=== PATIENT | female | born 1990 | race Two or more races ===

== ENCOUNTER 2025-02-05 08:40 | Emergency (ER) | payer MEDICAID, OTHER ==
[~2025-02-05] VITALS: Ht 167.6 cm; Wt 90.3 kg
--- NOTE | 2025-02-05 08:57 | ECG ---
[facility] Test Date: 2025-02-05 Test Time: 08:52:44 Pat Name: DANTE YANEZ Department: ER Room: Gender: F Tile Layer: GIFTY : 1990 Requested By: ERICA PICKETT Order Number: [id number] Reading MD: Measurements Intervals [place] Rate: 77 P: 56 SC: 141 QRS: 10 QRSD: 88 T: 14 QT: 385 QTc: 436 Interpretive Statements Sinus rhythm RSR' in V1 or V2, right VCD or RVH Please click the below link to view image of tracing.
--- NOTE | 2025-02-05 09:53 | DVH ---
EXAM: CT HEAD WITHOUT CONTRAST HISTORY: HEADACHE COMPARISON: None TECHNIQUE: Axial images of the head were obtained and reformatted in coronal and sagittal planes. All CT scans at this medical facility are performed using dose modulation techniques as appropriate t o a performed exam including the following: Automated exposure control was utilized; adjustment of th e MA and/or KV according to patient size; and use of iterative reconstruction technique. CT Dose: CTDI volume is 52.74 mGy. Dose-length product is 740.04 mGy*cm FINDINGS: There is no evidence of acute intracranial hemorrhage, mass, mass effect midline shift. There is no h ydrocephalus or extra-axial fluid collection. Araujo-white matter differentiation is maintained. The visualized paranasal sinuses and mastoid air cells are clear. The calvarium is intact. IMPRESSION: 1. No acute intracranial process. HS:Y
[2025-02-05 09:55] VITALS: BP 106/75; RESP 17; TEMP 98.8; O2SAT 97
[2025-02-05 10:11] VITALS: PULSE 77
--- NOTE | 2025-02-05 10:11 | ED.PDOC ---
HPI (NEURO) HPI Comments A 34 YEAR OLD FEMALE PRESENTS TO THE ED WITH COMPLAINT OF HEADACHE. PATIENT STATES SHE HAS BEEN EXPERIENCING A HEADACHE WITH NAUSEA AND MILD LIGHT SENSITIVITY FOR THE PAST 4 DAYS. PATIENT NOTES THAT SHE WAS ALSO HAD LEFT EAR PAIN. PATIENT DENIES VISION CHANGES, SLURRED SPEECH, ONE-SIDED WEAKNESS, FACIAL DROOP, FEVER, CHILLS, SHORTNESS OF BREATH, CHEST PAIN, ABDOMINAL PAIN, VOMITING, OR OTHER COMPLAINTS. NO OTHER SYMPTOMS OR MODIFYING FACTORS AT THIS TIME. PATIENT IS ALERT, ORIENTED X 4, AND HAS STEADY GAIT. Chief Complaint: Headache Time Seen by MD: 09:01 Primary Care Provider: DREA Reviewed Notes: Nurses Notes, Medications, Allergies Information Source: Patient Mode of Arrival: Ambulatory Severity: Moderate Headache Severity: Moderate Timing: Days Duration: Since onset, Days Prehospital treatment: None Headache Quality: Aching Headache Location: Generalized Onset: At rest Circumstances: Spontaneous Symptoms: Other (HEADACHE, NAUSEA, LIGHT SENSITIVITY) History of: None Modifying factors: Nothing Associated Signs and Symptoms: Headache, Nausea, Other (RIGHT EAR DULL PAIN ) Past Medical History PAST MEDICAL HISTORY: Denies Surgical History: Denies all surgeries CONTROLS TECHNICIAN History: No Pertinent CONTROLS TECHNICIAN History Family History Family History: Reviewed,noncontributory to illness Social History Smoker: Non-Smoker Alcohol: Denies ETOH Use Drugs: Denies Drug Use Lives In: Home Constitutional: denies: chills, diaphoresis, fatigue, fever, malaise, sweats, weakness, others EENTM: reports: ear pain, photophobia; denies: blurred vision, double vision, ear bleeding, ear discharge, ear drainage, ear ringing, eye pain, eye redness, hearing loss, mouth pain, mouth swelling, nasal discharge, nose bleeding, nose congestion, nose pain, tearing, throat pain, throat swelling, voice changes, others Respiratory: denies: cough, hemoptysis, orthopnea, SOB at rest, shortness of breath, SOB with excertion, stridor, wheezing, others Cardiovascular: denies: chest pain, dizzy spells, diaphoresis, Dyspnea on exertion, edema, irregular heart beat, left arm pain, lightheadedness, palpitations, PND, syncope, others Gastrointestinal: reports: nausea; denies: abdomen distended, abdominal pain, blood streaked bowels, constipated, diarrhea, dysphagia, difficulty swallowing, hematemesis, melena, poor appetite, poor fluid intake, rectal bleeding, rectal pain, vomiting, others Genitourinary: denies: abnormal vagina bleeding, burning, dyspareunia, dysuria, flank pain, frequency, hematuria, incontinence, pain, , vagina discharge, urgency, others Neurological: reports: headache, left sided numbness, tingling; denies: dizziness, fainting, left sided weakness, numbness, paresthesia, pre-existing deficit, right sided numbness, right sided weakness, seizure, speech problems, tremors, weakness, others Musculoskeletal: denies: back pain, gout, joint pain, joint swelling, muscle pain, muscle stiffness, neck pain, others Integumetry: denies: bruises, change in color, change in hair/nails, dryness, laceration, lesions, lumps, rash, wounds, others Allergic/Immunocompromised: denies: Difficulty Healing, Frequent Infections, Hives, Itching, others Hematologic/Lymphatic: denies: anemia, blood clots, easy bleeding, easy bruising, swollen glands, others Endocrine: denies: excessive hunger, excessive sweating, excessive thirst, excessive urination, flushing, intolerance to cold, intolerance to heat, unexplained weight gain, unexplained weight loss, others Psychiatric: denies: anxiety, bipolar disorder, depression, hopeless, panic disorder, schizophrenia, sleepless, suicidal, others All Other Systems: Reviewed and Negative Physical Exam General Appearance: No Apparent Distress, Normal, Other (ANXIOUS ) HEENT: Normal ENT Inspection, PERRL/EOMI, Pharynx Normal, TMs Normal, Other (ERYTHEMA AND DULL OF RIGHT EAR CANAL, NO DRAINAGE AND BLOOD CLOTS. ) Neck: Full Range of Motion, Non-Tender, Normal, Normal Inspection Respiratory: Chest Non-Tender, Lungs Clear, No Accessory Muscle Use, No Respiratory Distress, Normal Breath Sounds Cardiovascular: No Edema, No JVD, No Murmur, No Gallop, Normal Peripheral Pulses, Regular Rate/Rhythm Breast Exam: Deferred Gastrointestinal: No Organomegaly, Non Tender, No Pulsatile Mass, Normal Bowel Sounds, Soft Genitalia: Deferred Pelvic: Deferred Rectal: Deferred Extremities: No calf tenderness, Normal capillary refill, Normal inspection, Normal range of motion, Non-tender, No pedal edema Musculoskeletal : Apperance: Normal Neurologic: Alert, supervisory cbp officer II-XII nml as Tested, Headache, No Motor Deficits, Normal Affect, Normal Mood, No Sensory Deficits Cerebellar Function: Normal Reflexes: Normal Skin: Dry, Normal Color, Warm Peripheral Pulses: 2+ carotid (R), 2+ carotid (L) Lymphatic: No Adenopathy EKG EKG : Pulse Rate (adult): 77 [place]: Normal Cardiac Rhythm: NSR Block: None Hypertrophy: None ST: Normal Was a procedure done? Was a procedure done?: No Differential Diagnosis (SZ) Seizure: N/A General Weakness: N/A Headache: Cluster, Migraine, Epidural Hemorrhage, Intracerebral Hemorrhage, Mass Lesion, Sinusitis, Other (EXTERNAL EAR INFECTION ) X-Ray, Labs, Meds, VS Vital Signs Date Time Temp Pulse Resp B/P (MAP) Pulse Ox O2 Delivery O2 Flow Rate FiO2 02/05/25 10:11 77 02/05/25 09:55 98.8 86 17 106/75 (85) 97 98.8 02/05/25 09:55 86 17 97 Room Air 02/05/25 08:56 98.8 86 16 106/75 (85) 97 98.8 02/05/25 08:52 77 Current Medications Medications (Trade) Dose Ordered Sig/Raulito Route Start Time Stop Time Status Last Admin Sumatriptan Succinate (Imitrex Inj) 6 mg ONCE ONCE SC 02/05/25 10:15 02/05/25 10:16 DC 02/05/25 10:15 EXAM: CT HEAD WITHOUT CONTRAST HISTORY: HEADACHE COMPARISON: None TECHNIQUE: Axial images of the head were obtained and reformatted in coronal and sagittal planes. All CT scans at this medical facility are performed using dose modulation techniques as appropriate to a performed exam including the following: Automated exposure control was utilized; adjustment of the MA and/or KV according to patient size; and use of iterative reconstruction technique. CT Dose: CTDI volume is 52.74 mGy. Dose-length product is 740.04 mGy*cm FINDINGS: There is no evidence of acute intracranial hemorrhage, mass, mass effect midline shift. There is no hydrocephalus or extra-axial fluid collection. Araujo-white matter differentiation is maintained. The visualized paranasal sinuses and mastoid air cells are clear. The calvarium is intact. IMPRESSION: 1. No acute intracranial process. HS:Y ATED BY: YAHIR RIZZO MD DICTATED DATE/TIME: 02/05/25950 SIGNED BY: YAHIR RIZZO MD SIGNED DATE/TIME: 02/05/25950 CC: X-Ray, Labs, Meds, VS Comment EXTERNAL MEDICAL RECORDS REVIEWED: [NONE] INDEPENDENT HISTORIANS: [NONE] SOCIAL DETERMINANTS OF HEALTH: [NONE] LABS ORDERED: NONE REVIEWED AND INTERPRETED RESULTS: NONE IMAGING ORDERED: CT BRAIN TREATMENTS ORDERED: IMITREX 6 MG IM PROCEDURES PERFORMED: NONE CRITICAL CARE TIME: NONE I HAVE DISCUSSED THE PATIENT WITH THE ATTENDING PHYSICIAN DR. PICKETT AND HE AGREES WITH THE PATIENT'S PLAN OF CARE AND DISPOSITION. BASED ON HISTORY OF PRESENT ILLNESS, AND PHYSICAL EXAM, PATIENT WILL BE DISCHARGED HOME. DISCUSSED PLAN FOR DISCHARGE HOME WITH RX: IMITREX 50MG AND CIPRODEX OTIC. MEDICATION WARNINGS GIVEN. SHARED DECISION MAKING: PATIENT INSTRUCTED TO FOLLOW UP WITH PRIMARY CARE PROVIDER IN 1-2 DAYS FOR RE-EVALUATION OF SYMPTOMS. PATIENT VERBALIZES UNDERSTANDING TO RETURN TO ED FOR NEW OR WORSENING SYMPTOMS OR IF FOLLOW UP WITH PCP CANNOT BE OBTAINED. PATIENT FEELS COMFORTABLE GOING HOME AT THIS TIME. ALL QUESTIONS ADDRESSED AT TIME OF DISCHARGE. Images Reviewed?: Images reviewed and evaluated by me Time of 1ST Reevaluation: 10:40 Reevaluation 1ST: Improved Patient Education/Counseling: Diagnosis, Treatment, Need For Follow Up Family Education/Counseling: Diagnosis, Treatment, Need For Follow Up Medical Screening: No EMC Exist At This Time Departure 1 Departure Time of Disposition: 10:40 Impression: Primary Impression: Migraine headache without aura Qualified Codes: G43.009 - Migraine without aura, not intractable, without status migrainosus Additional Impression: External otitis of right ear Qualified Codes: H60.501 - Unspecified acute noninfective otitis externa, right ear Disposition: HOME / SELF CARE / HOMELESS Condition: Stable Additional Instructions: FOLLOW-UP WITH PCP IN 1 TO 2 DAYS. TAKE MEDICATIONS PRESCRIBED. RETURN TO ED FOR ANY NEW OR WORSENING SYMPTOMS. e-Prescriptions Sumatriptan Succinate (Imitrex) 50 Mg Tab 1 TAB PO BID, #20 TAB Prov: MARY CHOPRA 02/05/25 Ciprofloxacin-Hydrocortisone (Cipro Hc 0.2-1 %) 1 Violet Violet 4 DROP OT BID, #7.5 ML Prov: MARY CHOPRA 02/05/25 Discharged With: Self Critical Care Note Critical Care Time?: No Stability Stability form required: No I personally scribed for MARY CHOPRA ([email or web address]) on 02/05/25 at 10:11. Electronically submitted by Eloy Eaton ([email or web address]). MARY CHOPRA Feb 05, 2025 10:11
[2025-02-05] MEDS: SUMAtriptan SUCCINATE 6 MG/0.5 ML VL SC ONE (10:15)
[2025-02-05] MEDS ORDERED: SUMA50TA2 PO (10:25)
[2025-02-05] MEDS ORDERED: CIPRSUS OT (10:25)
== END 2025-02-05 10:34 | disposition home or self-care (01) ==
LOC: ER 08:40
DX: G43.009 Migraine without aura, not intractable, without status migrainosus (principal); H60.91 Unspecified otitis externa, right ear; Z79.899 Other long term (current) drug therapy
CPT/HCPCS: 70450; 93005; 96372; 99285; J3030